=== PATIENT | male | born 1955 | race Caucasian/White ===

== ENCOUNTER 2018-12-20 12:27 | Outpatient (REF) | payer BC, SELFPAY ==
[2018-12-20 13:35] LABS: Anion Gap 12.5 mmol/L (3-11); BUN 17 mg/dL (7-18); CO2 26.5 mmol/L (21.0-32.0); CREATININE 1.11 mg/dL (0.70-1.30); Calcium 9.5 mg/dL (8.5-10.1); Chloride 101 mmol/L (98-107); Glucose 137 mg/dL (70-100); Potassium 3.5 mmol/L (3.5-5.1); Sodium 140 mmol/L (136-145)
[2018-12-23 09:38] LABS: PSA, Screening 1.6 ng/ml (0-4.5)
== END 2018-12-20 12:47 ==
LOC: NCHCN 12:27
PROVIDERS: PCP Nurse Practitioner Primary Care; Visit Provider Internal Medicine
DX: I10 Essential (primary) hypertension (principal); Z00.00 Encounter for general adult medical examination without abnormal findings; N40.1 Benign prostatic hyperplasia with lower urinary tract symptoms; K20.8 Other esophagitis; Z12.5 Encounter for screening for malignant neoplasm of prostate
CPT/HCPCS: 80048; 84153

== ENCOUNTER 2021-03-22 14:30 | Outpatient (REF) | payer OTHER, SELFPAY ==
[2021-03-22 16:27] LABS: HCT 42.3 % (40.0-50.0); HGB 14.2 g/dL (13.5-17.5); MCH 30.3 pg (27.0-33.0); MCHC 33.6 % (32.0-36.0); MCV 90.4 fL (80-95); MPV 10.3 fL (8.0-11.0); Platelet Count 362 10^3/uL (130-400); RBC 4.68 10^6/uL (4.36-5.78); RDW 12.5 % (11.8-14.1); RDW-SD 41.4 fL; WBC 10.95 10^3/uL (4.4-10.8)
[2021-03-22 16:47] LABS: ALT 28 U/L (16-63); AST 23 U/L (15-37); Alkaline Phosphatase 71 U/L (46-116); Anion Gap 10.3 mmol/L (3-11); BUN 20 mg/dL (7-18); CO2 28.7 mmol/L (21.0-32.0); CREATININE 1.3 mg/dL (0.70-1.30); Calcium 9.9 mg/dL (8.5-10.1); Calculated LDL 87 mg/dL (<100); Chloride 102 mmol/L (98-107); Cholesterol 181 mg/dL (<200); Estimated GFR 55.58 (mL/min/1.73m2); Glucose 114 mg/dL (74-106); HDL Cholesterol 40 mg/dL (40-60); Potassium 3.8 mmol/L (3.5-5.1); Sodium 141 mmol/L (136-145); Total Protein 7.5 g/dL (6.4-8.2); Triglyceride 274 mg/dL (<150)
== END 2021-03-22 14:31 | disposition home or self-care (01) ==
LOC: NCHCN 14:30
PROVIDERS: PCP Nurse Practitioner Primary Care; Visit Provider Family Medicine
DX: E78.5 Hyperlipidemia, unspecified (principal); E66.9 Obesity, unspecified; Z00.00 Encounter for general adult medical examination without abnormal findings; I10 Essential (primary) hypertension
CPT/HCPCS: 80053; 80061; 85027

== ENCOUNTER 2021-06-22 01:55 | Outpatient (CLI) | payer OTHER, SELFPAY ==
[2021-06-22 11:39] LABS: Source Nasal/Nares
[2021-06-22 13:50] LABS: COVID-19 PCR Negative (Negative)
== END 2021-06-22 01:56 | disposition home or self-care (01) ==
LOC: LBO 01:55
PROVIDERS: PCP Nurse Practitioner Primary Care; Visit Provider Surgery
DX: Z20.822 Contact with and (suspected) exposure to COVID-19 (principal)
CPT/HCPCS: 87635

== ENCOUNTER 2021-06-24 09:56 | Day surgery (SDC) | payer OTHER, SELFPAY ==
--- NOTE | 2021-06-23 21:29 | W.PM.ENDDOP ---
Date of service: 06/24/21 Endoscopy Report DATE OF PROCEDURE: 06/24/21 PRE-OP DIAGNOSIS: Barett's esophagus POST-OP DIAGNOSIS: other (duidenitis/gastritis/gastric polyps) SURGEON: Karuna Saxena ANESTHESIA TYPE: General:No Airway PATHOLOGY: other COMPLICATIONS: None DISPOSITION: same day PROCEDURE DESCRIPTION: After informed consent was obtained the patient was take to the procedure room and placed in a supine position. Monitors were applied and a time out was done. The patients name, date of , procedure type, allergies to medications and metal in their body was reviewed. A bite block was placed and the patient was sedated. Once sedated and comfortable the gastroscope was advanced through the oropharynx which was grossly normal into the esophagus. The proximal and mid-esophagus were nl. In the distal esophagus there was esophageal erosions/varices/diverticula or strictures.. The scope was advanced into the stomach and through the pylorus into the 3rd portion of the duodenum. The duodenum was noted to be mild doudentis. Biopsies were done, all specimens are retrieved and no bleeding is noted. There is mild gastritis is diffuse are at the antrum- bx were taken. The scope was retracted back into the stomach and biopsies were done to rule out H. pylori. The stomach is blanketed w/ polyps. There were no ulcers. The scope was retroflexed. The cardia and fundus were noted to be normal. There small hiatal hernia noted. The scope was retracted back into the esophagus and biopsies were done of the GE junction to rule out Moreno's. The Z line was irregular. Bx are taken. The scope was removed and the patient was woken up and taken back to [facility] in stable condition. Follow up: stop asa Rx protonix
--- NOTE | 2021-06-23 21:30 | PDOC.DSDIS_ITS ---
Discharge Plan Disposition Patient Disposition: HOME Condition: Good Discharge Details Reason For Visit: stomach scope Attending Provider: Karuna Saxena Primary Care Provider: Destiny Link Home Meds and New Rx's Prescriptions: No Action simvastatin 40 mg tablet 40 mg PO DAILY RF: 0 losartan-hydrochlorothiazide 100-25 mg tablet 1 tab PO DAILY RF: 0 omeprazole 20 MG capsule,delayed release(DR/EC) 20 mg PO DAILY RF: 0 Discharge Instructions Additional Instructions: DSU Colonoscopy Post- Op Instructions Instructions for Everyone who is given Anesthesia: For your safety, please do the following for the next twenty-four (24) hours: *Do Not operate a motor vehicle (car, truck, motorcycle, etc.) *Do Not drink alcoholic beverages or use any recreational drugs for the first 24 hours or while taking pain medications. The medications in your body may have a reaction that can be dangerous. *Do Not make any important decisions or sign any important papers. Findings:mild gastritis/duodentitis Stop taking ASA Follow up: My office will send a letter in 2-3 weeks time with the results of the biopsy. I will let you know if I want you to change stomach medication. 1. No lifting over 20 pounds or strenuous activity for the first 24 hours after your procedure. After 24 hours there are no restrictions on your activity but you may feel fatigued for a few days. 2. After you arrive home you may have a light meal and return to your normal diet as you can tolerate it without feeling sick to your stomach. 3. You may have a bloated, gaseous feeling in your belly (abdomen) after a colonoscopy. Passing gas and belching will help. Walking or lying down on your left side with your knees flexed may relieve the discomfort. 4. Gargle with salt water 5-6 times a day for sore throat as needed. Call the office at [phone] (Office) or [phone] (Hospital) right away if you notice any of the following: a.Vomiting of blood or ?coffee ground stools?. b.Rectal bleeding 1Tbsp, blood clots or continuous bleeding. c.Severe belly (abdominal) pain. d.A hard distended belly (abdomen) and an inability to pass gas. 4. Please don?t expect to have a normal BM (bowel movement) for 2-3 days after your procedure. 5. If there are questions regarding the findings of your procedure, please contact your doctor 6. If you are unable to contact your doctor with a problem, contact the hospital at [phone]. 7. Continue all your regular medications unless directed otherwise. I understand the above instructions and have no questions. Signature of Patient or Adult Escort Name of Responsible Adult Escort Signature of Nurse Date/Time Activity:: see above Diet:: see above Discharge Orders Discharge Orders: Discharge Order (Routine); Ordered 06/23/21 Ordered By: Karuna Saxena DS: Diagnosis Discharge Diagnosis (1) Moreno esophagus: Status: Acute (2) Hiatal hernia: Status: Acute
[2021-06-24 10:10] VITALS: BP 163/91; PULSE 79; RESP 22; TEMP 36.8; O2SAT 98
[2021-06-24] MEDS: Lactated Ringers 1,000 ML 80 ML IV (10:33)
--- NOTE | 2021-06-24 10:57 | W.ANESPRE ---
General Info Date of Service Date Performed: 06/24/21 Height: 5 ft 10 in Weight: 108.6 kg Body Mass Index (BMI): 34.3 Surgical Procedure: Operation Date: 06/24/21 10:50 Proposed Procedures Side Surgeon p Gastroscopy w/biopsy Karuna Saxena DO Meds Allergies and Home Medications Allergies Allergy/AdvReac Type Severity Reaction Status Date / Time Penicillins Allergy Unknown as child Unverified 06/24/21 10:15 Home Medication Medication Instructions Recorded omeprazole 20 mg PO DAILY 02/21/13 losartan 100 1 tab PO DAILY 04/11/21 mg-hydrochlorothiazide 25 mg tablet simvastatin 40 mg tablet 40 mg PO DAILY 04/11/21 Current Visit Medications: Current Medications Generic Name Dose Route Start Last Admin Trade Name Freq PRN Reason Stop Dose Admin Hyoscyamine Sulfate 0.125 mg 06/23/21 21:28 Hyoscyamine 0.125 Mg Sl/Oral/Chew SL DIRECTED PRN Ringer's Solution 1,000 mls @ 80 mls/hr 06/24/21 06:00 06/24/21 10:33 IV 07/23/21 23:59 80 mls/hr INFUSION GABRIELLA Administration IV Miscellaneous Supplies 1 each 06/24/21 06:00 Iv Access IV 07/23/21 23:59 DIRECTED GABRIELLA Ondansetron HCl 4 mg 06/23/21 21:28 Ondansetron 4 Mg/2 Ml Vial IVP Q4H PRN PRN Nausea / Vomiting Sodium Chloride 0 ml 06/24/21 06:00 Normal Saline Flush 10 Ml Syr IV 07/23/21 23:59 PRN PRN Sodium Chloride 0 ml 06/24/21 06:00 Normal Saline 10 Ml Vial IJ 07/23/21 23:59 DIRECTED PRN Sterile Water 0 ml 06/24/21 06:00 Water,Injection,Sterile 10 Ml Vial IJ 07/23/21 23:59 DIRECTED PRN PFSH Active Problems Active Problems: Problem Status Onset Code Hypertension Hyperlipidemia Hiatal hernia Personal history of colonic polyps Z86.010 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 Medical History Medical History 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 Colon polyp Surgical History Surgical History Colonoscopy - [facility] (06/04/15) EGD - [facility] Tobacco Smoking/Tobacco Use Status: Never Alcohol Alcohol Intake: never Substance Use Substance use: Never Substance use type: does not use Vital Signs and Lab Results Vital Signs Most Recent Vital Signs in EMR: Most Recent Vital Signs Temp Pulse Resp BP Pulse Ox 36.8 C 79 22 163/91 H 98 06/24/21 10:10 06/24/21 10:10 06/24/21 10:10 06/24/21 10:10 06/24/21 10:10 Lab Results Blood Type / Crossmatch: No Data to Display Complete Blood Count: No Data to Display Complete Metabolic Panel: No Data to Display Liver Function Panel: No Data to Display Coagulation Panel: No Data to Display Cardiac Panel: No Data to Display Arterial Blood Gas: No Data to Display Venous Blood Gas: No Data to Display Pancreas Panel: No Data to Display Thyroid Panel: No Data to Display Infectious Disease: Coronavirus (COVID-19)(PCR) Negative (Negative) 06/22/21 09:20 06/22/21 Coronavirus 2019 Source Nasal/Nares 06/22/21 09:20 06/22/21 Blood Cultures: No Data to Display Toxicology Panel: No Data to Display Anesthesia Assessment and Plan Anesthesia History Personal History: No History of Anesthesia Complications Family History: No Family History of Anesthesia Complications Exercise Tolerance Exercise Tolerance: Metabolic Equivalents>4 Pertinent Negatives Pertinent Negatives: No Symptoms of GERD (Controlled on medication), No Major Cardiovascular Symptoms or Complaints and No History of CVA/TIA Cardiac & Pulmonary Exam Cardiac Exam: Normal S1/S2 Heart Sounds Pulmonary Exam: Clear Bilateral Breath Sounds Implantable Cardiac Device Does patient have a Pacemaker or an ICD?: No Airway Exam Known Difficult Airway: No Mallampati Class: 3 Mouth Opening: Normal (> 3cm) Thyromental Distance: Greater than 3 cm Neck Range of Motion: Limited ROM Neck Circumference: Normal Teeth Condition: Normal Dentition ASA Classification ASA Score: ASA 2 Emergency Case?: No NPO Status NPO Status: NPO Clears >2 hours, Solids >8 hours Anesthesia Plan Resuscitation Status: Full Code Anesthesia Technique: General Anesthesia Airway Planned: Natural Airway Monitors Used: Standard Monitors
[2021-06-24 11:07] VITALS: BMI 34.3
--- NOTE | 2021-06-24 12:13 | STOM_PTH ---
PATIENT: Thang Machado LOC: [facility] U#:[id number] AGE/SX: 65/M ROOM: RE06/24/[address]: Karuna Saxena : 1955 BED: DIS: 06/24/2021 SPEC #: [id number] RECD: 06/24/21 12:57 STATUS: KADEN RETeofilo #: [id number] MARSHA: 06/24/21 12:[address]: Karuna Saxena DEPT: Surgical Specimen RECD BY: Josette Yee ENTERED: 06/24/21 12:58 SP TYPE: STOMACH OTHR DR: Destiny Link, [facility] Tissues: 1 - BIOPSY BOWEL 2 - BIOPSY BOWEL 3 - STOMACH BIOPSY 4 - STOMACH BIOPSY 5 - STOMACH BIOPSY 6 - ESOPHAGUS BIOPSY 7 - ESOPHAGUS BIOPSY Procedures: SPECIAL STAIN 2 GROSS AND MICRO LEVEL 4 Comments: [id number]
[2021-06-24 12:26] VITALS: BP 118/86; PULSE 75; RESP 22; TEMP 36.8; O2SAT 98
[2021-06-24 12:57] VITALS: BP 140/88; PULSE 66; RESP 16; TEMP 36.5; O2SAT 97
--- NOTE | 2021-06-24 13:24 | W.ANESPOSTOP ---
Postoperative Evaluation Date, Time and Location Date Performed: 06/24/21 Time Performed: 12:30 Patient Location: Day Surgery Unit Vital Signs Most Recent Imported Vital Signs: Most Recent Vital Signs Temp Pulse Resp BP Pulse Ox 36.8 C 75 22 118/86 98 06/24/21 12:26 06/24/21 12:26 06/24/21 12:26 06/24/21 12:06/24/21 12:26 Pain Score Most Recent Pain Score: Most Recent Pain Score Pain Level 0 06/24/21 12:26 Assessment Mental Status: Awake (Alert & Oriented to Patient Baseline) Airway and Respiratory Function: Patent airway with normal (patient baseline) respiratory exam Cardiovascular Function: Hemodynamically Stable Hydration Status: Adequately Hydrated Nausea & Vomiting: No Nausea or Vomiting Pain: Pt. Denies Any Pain Peripheral Nerve Block: Patient did not receive a nerve block
== END 2021-06-24 13:46 | disposition home or self-care (01) ==
LOC: SUR 09:57
PROVIDERS: PCP Nurse Practitioner Primary Care; Visit Provider Surgery
PROC: 0DJ68ZZ Inspection of Stomach, Via Natural or Artificial Opening Endoscopic (ICD-10-PCS; CPT 43235; principal; 2021-06-24 10:45)
DX: K29.80 Duodenitis without bleeding (principal); K31.7 Polyp of stomach and duodenum; K29.70 Gastritis, unspecified, without bleeding; K44.9 Diaphragmatic hernia without obstruction or gangrene; I10 Essential (primary) hypertension; E78.5 Hyperlipidemia, unspecified; K22.70 Barrett's esophagus without dysplasia
CPT/HCPCS: 43239; 88305; 88313

== ENCOUNTER 2022-06-12 11:38 | Outpatient (REF) | payer OTHER, SELFPAY ==
[2022-06-12 14:57] LABS: Anion Gap 7.1 mmol/L (3-11); BUN 21 mg/dL (7-18); CO2 30.9 mmol/L (21.0-32.0); CREATININE 1.4 mg/dL (0.70-1.30); Calcium 10.1 mg/dL (8.5-10.1); Chloride 99 mmol/L (98-107); Estimated GFR 55.78 (mL/min/1.73m2); Glucose 131 mg/dL (74-106); Potassium 3.3 mmol/L (3.5-5.1); Sodium 137 mmol/L (136-145)
== END 2022-06-12 11:39 | disposition home or self-care (01) ==
LOC: NCHCN 11:38
PROVIDERS: PCP Nurse Practitioner Primary Care; Visit Provider Family Medicine
DX: I10 Essential (primary) hypertension (principal); R73.03 Prediabetes; E66.9 Obesity, unspecified; Z00.00 Encounter for general adult medical examination without abnormal findings
CPT/HCPCS: 80048

== ENCOUNTER 2022-09-06 12:04 | Outpatient (REF) | payer OTHER, SELFPAY ==
[2022-09-06 16:11] LABS: Anion Gap 12.1 mmol/L (3-11); BUN 12 mg/dL (7-18); CO2 24.9 mmol/L (21.0-32.0); CREATININE 1.2 mg/dL (0.70-1.30); Calcium 10.1 mg/dL (8.5-10.1); Chloride 105 mmol/L (98-107); Estimated GFR 67.11 (mL/min/1.73m2); Glucose 116 mg/dL (74-106); Potassium 3.8 mmol/L (3.5-5.1); Sodium 142 mmol/L (136-145)
== END 2022-09-06 12:05 | disposition home or self-care (01) ==
LOC: NCHCN 12:04
PROVIDERS: PCP Nurse Practitioner Primary Care; Visit Provider Family Medicine
DX: I10 Essential (primary) hypertension (principal); R73.03 Prediabetes
CPT/HCPCS: 80048

== ENCOUNTER 2022-10-20 15:49 | Outpatient (REF) | payer OTHER, SELFPAY ==
[2022-10-20 15:37] LABS: Uric Acid 5.3 mg/dL (3.5-7.2)
== END 2022-10-20 15:50 | disposition home or self-care (01) ==
LOC: NCHCN 15:49
PROVIDERS: PCP Nurse Practitioner Primary Care; Visit Provider Nurse Practitioner Family
DX: M10.9 Gout, unspecified (principal)
CPT/HCPCS: 84550

== ENCOUNTER 2022-12-04 16:27 | Outpatient (REF) | payer OTHER, SELFPAY ==
[2022-12-05 11:44] LABS: Hemoglobin A1C 6.2 % (<5.7)
== END 2022-12-04 16:28 | disposition home or self-care (01) ==
LOC: NCHCN 16:27
PROVIDERS: PCP Nurse Practitioner Primary Care; Visit Provider Family Medicine
DX: R73.03 Prediabetes (principal)
CPT/HCPCS: 83036

== ENCOUNTER 2023-08-01 21:53 | Outpatient (REF) | payer OTHER, SELFPAY ==
[2023-08-01 22:13] LABS: Abs Immature Grans 0.03 10^3/uL (0.0-0.06); Absolute Eosinophil Count 0.21 10^3/uL (0.0-0.7); Absolute Lymphocyte Count 3.06 10^3/uL (1.2-3.4); Absolute Monocyte Count 0.66 10^3/uL (0.1-0.8); Absolute Neutrophil Count 5.29 10^3/uL (1.2-6.7); Basophils % 1.1; Eosinophils % 2.2; HCT 46.7 % (40.0-50.0); HGB 15.4 g/dL (13.5-17.5); Immature Grans % 0.3; Lymphocytes % 32.7; MCH 30.4 pg (27.0-33.0); MCV 92 fL (80-95); MPV 10.1 fL (8.0-11.0); Monocytes % 7.1; Neutrophils % 56.6; Platelet Count 340 10^3/uL (130-400); RBC 5.07 10^6/uL (4.36-5.78); RDW 13.1 % (11.8-14.1); RDW-SD 43.8 fL; WBC 9.35 10^3/uL (4.4-10.8)
[2023-08-01 22:27] LABS: ALT 30 U/L (16-63); AST 22 U/L (15-37); Albumin 4.1 g/dL (3.4-5.0); Alkaline Phosphatase 79 U/L (46-116); Anion Gap 11.1 mmol/L (3-11); BUN 14 mg/dL (7-18); Bilirubin, Total 0.7 mg/dL (0.2-1.0); CO2 25.9 mmol/L (21.0-32.0); CREATININE 1.2 mg/dL (0.70-1.30); Calcium 9.7 mg/dL (8.5-10.1); Chloride 105 mmol/L (98-107); Glucose 110 mg/dL (74-106); Sodium 142 mmol/L (136-145); Total Protein 7.6 g/dL (6.4-8.2)
== END 2023-08-01 21:54 | disposition home or self-care (01) ==
LOC: NCHCN 21:53
PROVIDERS: PCP Nurse Practitioner Primary Care; Visit Provider Family Medicine
DX: I10 Essential (primary) hypertension (principal); R73.03 Prediabetes
CPT/HCPCS: 80053; 83036; 85025

== ENCOUNTER 2024-08-04 13:59 | Outpatient (REF) | payer OTHER, SELFPAY ==
[2024-08-04 14:46] LABS: Abs Immature Grans 0.03 10^3/uL (0.0-0.06); Absolute Basophil Count 0.09 10^3/uL (0.0-0.2); Absolute Eosinophil Count 0.29 10^3/uL (0.0-0.7); Absolute Lymphocyte Count 3.33 10^3/uL (1.2-3.4); Absolute Monocyte Count 0.71 10^3/uL (0.1-0.8); Absolute Neutrophil Count 5.82 10^3/uL (1.2-6.7); Basophils % 0.9 %; Eosinophils % 2.8 %; HCT 44.8 % (40.0-50.0); HGB 15.1 g/dL (13.5-17.5); Immature Grans % 0.3 %; Lymphocytes % 32.4 %; MCH 30.9 pg (27.0-33.0); MCHC 33.7 % (32.0-36.0); MCV 92 fL (80-95); MPV 10.1 fL (8.0-11.0); Monocytes % 6.9 %; Neutrophils % 56.7 %; Platelet Count 337 10^3/uL (130-400); RBC 4.89 10^6/uL (4.36-5.78); RDW 12.7 % (11.8-14.1); RDW-SD 42.5 fL; WBC 10.27 10^3/uL (4.4-10.8)
[2024-08-04 15:18] LABS: ALT 22 U/L (16-63); AST 23 U/L (15-37); Albumin 4.2 g/dL (3.4-5.0); Alkaline Phosphatase 84 U/L (46-116); Anion Gap 8.1 mmol/L (3-11); BUN 13 mg/dL (7-18); Bilirubin, Total 1.45 mg/dL (0.2-1.0); CO2 27.9 mmol/L (21.0-32.0); CREATININE 1.2 mg/dL (0.70-1.30); Calcium 10.2 mg/dL (8.5-10.1); Calculated LDL 73 mg/dL (<100); Chloride 105 mmol/L (98-107); Cholesterol 166 mg/dL (<200); Estimated GFR 66.28 (mL/min/1.73m2); Glucose 109 mg/dL (74-106); HDL Cholesterol 49 mg/dL (40-60); Potassium 4.1 mmol/L (3.5-5.1); Sodium 141 mmol/L (136-145); Total Protein 7.7 g/dL (6.4-8.2); Triglyceride 222 mg/dL (<150)
== END 2024-08-04 14:00 | disposition home or self-care (01) ==
LOC: NCHCN 13:59
PROVIDERS: PCP Nurse Practitioner Primary Care; Visit Provider Family Medicine
DX: K21.9 Gastro-esophageal reflux disease without esophagitis (principal); E78.5 Hyperlipidemia, unspecified
CPT/HCPCS: 80053; 80061; 85025